=== PATIENT | male | born 1965 | race Caucasian/White ===

== ENCOUNTER → 2017-10-15 | Outpatient (CLI) | payer OTHER ==
[~2017-10-15] MED LIST: ATIVAN0.5 M1 PO
== END ==
LOC: CAT 07:52
DX: Z13.6 Encounter for screening for cardiovascular disorders (principal)

== ENCOUNTER 2018-03-29 11:27 | Emergency (ER) | payer BC, OTHER ==
[~2018-03-29] VITALS: Ht 180.3 cm; Wt 83.9 kg
--- NOTE | ~2018-03-29 | EKG ---
[place] [address] [facility] [place] [address] ELECTROCARDIOGRAM REPORT Name: ALLIE CHIANG Room #: [facility]P [facility] [id number] Admission: 03/29/18 Attend Phys: Discharge: 03/29/18 Date of : 63 Report #: [id number] THIS REPORT FOR: //name// [facility] ED Test Date: 2018-03-29 Test Time: 11:30:02 Pat Name: ALLIE CHIANG Department: Room: Gender: [employer]: WILLI : 1965 Requested By: Jessica Uriarte Order Number: [id number] MD: Tarik Barriga Measurements Intervals [place] Rate: 118 P: 81 [place]: 154 QRS: 70 QRSD: 94 T: 15 QT: 339 QTc: 476 Interpretive Statements Sinus tachycardia Nonspecific ST segment abnormality No previous ECG available for comparison Electronically Signed On 03-29-2018 16:37:28 CDT by Tarik Barriga [email or web address] <ELECTRONICALLY SIGNED> By: Tarik Barriga MD, [facility] 03/29/18 1637 1130 1130 Tarik Barriga MD, FACC /EPI
[2018-03-29 11:47] LABS: ABSOLUTE NEUTROPHILS 6.7 thou/uL (1.4-8.2); BASOPHILS 0.8 % (0.0-2.0); EOSINOPHILS 0.6 % (0.0-3.0); HEMATOCRIT 46.6 % (42.0-52.0); HEMOGLOBIN 16.3 gm/dL (14.0-18.0); MCH 31.4 pg (26.0-34.0); MCV 89.7 fL (80.0-100.0); MONOCYTES 7.4 % (1.0-8.0); PLATELET COUNT 219 thou/uL (150-400); POLYS 68.2 % (36.0-66.0); RBC 5.19 mil/uL (4.50-6.00); RDW 13.2 % (10.5-14.5); WBC 9.9 thou/uL (4.0-11.0)
[2018-03-29 11:57] LABS: ANION GAP 8 mmol/L (7-16); BUN 18 mg/dL (7-18); CALCIUM 9.7 mg/dL (8.5-10.1); CHLORIDE 101 mmol/L (98-107); CO2 28 mmol/L (21-32); GLUCOSE 118 mg/dL (74-106); POTASSIUM 3.8 mmol/L (3.5-5.1); SODIUM 137 mmol/L (136-145)
[2018-03-29 11:59] LABS: TROPONIN-I <0.06 ng/mL (<0.06)
[2018-03-29] MEDS ORDERED: ATIVAN0.5 M1 PO (12:22)
[2018-03-29 12:38] VITALS: BP 126/89
== END 2018-03-29 13:00 | disposition home or self-care (01) ==
LOC: ER 11:27
PROVIDERS: Emergency Medicine
DX: R42 Dizziness and giddiness (principal); R55 Syncope and collapse; F41.9 Anxiety disorder, unspecified; R51 Headache; Z88.8 Allergy status to other drugs, medicaments and biological substances